=== PATIENT | male | born 1990 | race Caucasian/White ===

== ENCOUNTER 2018-11-08 15:51 | Inpatient (IN) | payer BC ==
[2018-11-08] MEDS ORDERED: Acetaminophen 325 MG Tab PO PRN (15:53)
[2018-11-08] MEDS ORDERED: Sodium Chloride 0.9% 10 ML Syringe FLUSH PRN (15:53)
[2018-11-08] MEDS ORDERED: Ketorolac 30 MG/ML SDV IVPUSH PRN (16:03)
[2018-11-08] MEDS ORDERED: Vancomycin 2 GM in Sodium Chloride 0.9% 500 ML IV ONE ×4 (17:00)
[2018-11-08] MEDS: Sodium Chloride 0.9% 1,000 ML IV SCH (17:30)
[2018-11-08] MEDS: Linezolid 600 MG in Premix Bag 1 BAG IV SCH (20:36)
[2018-11-08] MEDS ORDERED: Ibuprofen 600 MG Tab PO PRN (21:04)
[2018-11-08] MEDS ORDERED: Ibuprofen 400 MG Tab PO PRN (21:10)
[2018-11-09 08:10] LABS: CHLORIDE,CL 101 mmol/L (98-115); SODIUM,NA 139 mmol/L (136-145)
--- NOTE | 2018-11-09 09:05 | PN ---
11/08/2018 PATIENT NAME: MIR WAGNER HISTORY OF PRESENT ILLNESS: This is a 28-year-old gentleman who was admitted today because of left elbow olecranon bursitis. The patient has stated multiple allergies including penicillin, Rocephin, sulfa, Benadryl, and cetirizine. I did confer with Infectious Disease specialist from [facility] this evening. I was advised to start him on linezolid 600 mg IV q.12 hours. This will be done this evening. Blood cultures have also been drawn for him. /[id number]/MODL
[2018-11-09] MEDS: Famotidine 20 MG Tab PO SCH (09:48)
[2018-11-09] MEDS: Linezolid 600 MG in Premix Bag 1 BAG IV SCH ×2 (09:48→21:20)
--- NOTE | 2018-11-09 10:42 | PCM.PN ---
- General Info Date of Service: 11/09/18 Functional Status: Reports: Pain Controlled, Urinating. Denies: Ambulating, New Symptoms - Review of Systems General: Denies: Fever HEENT: Reports: No Symptoms Pulmonary: Reports: No Symptoms Cardiovascular: Reports: No Symptoms Gastrointestinal: Reports: No Symptoms Musculoskeletal: Reports: Arm Pain, Joint Swelling Skin: Reports: Other (Left elbow erythematous however slightly receding) Neurological: Denies: Confusion Psychiatric: Reports: No Symptoms - Patient Data Vitals - Most Recent: Last Vital Signs Temp 98.8 F 11/09/18 10:00 Pulse 89 11/09/18 06:40 Resp 18 11/09/18 06:40 BP 112/55 L 11/09/18 06:40 Pulse Ox 94 L 11/09/18 06:40 Weight - Most Recent: 194 lb I&O - Last 24 Hours: Intake & Output 11/08/18 11/09/18 11/09/18 22:59 06:59 14:59 Intake Total 1170 910 Output Total 300 Balance 870 910 Lab Results Last 24 Hours: Laboratory Results - last 24 hr 11/08/18 11/09/18 11/09/18 Range/Units 20:00 07:10 07:10 WBC 8.93 (5.00-10.00) 10^3/uL RBC 4.76 (4.50-6.00) 10^6/uL Hgb 14.7 (13.0-17.0) g/dL Hct 40.9 (40.0-52.0) % MCV 85.9 (82.0-92.0) fL MCH 30.9 (27.0-31.0) pg MCHC 35.9 (32.0-36.0) g/dL RDW 12.0 (11.5-14.5) % Plt Count 119 L (150-400) 10^3/uL MPV 9.2 (7.4-10.4) fL Immature Gran % (Auto) 0.1 (0.0-5.0) % Neut % (Auto) 74.2 H (50.0-70.0) % Lymph % (Auto) 9.9 L (20.0-40.0) % [place] % (Auto) 13.8 H (2.0-8.0) % Eos % (Auto) 1.9 (1.0-3.0) % Baso % (Auto) 0.1 (0.0-1.0) % Immature Gran # (Auto) 0.01 (0.00-0.50) 10^3/uL Neut # (Auto) 6.63 (2.50-7.00) 10^3/uL Lymph # (Auto) 0.88 L (1.00-4.00) 10^3/uL [place] # (Auto) 1.23 H (0.10-0.80) 10^3/uL Eos # (Auto) 0.17 (0.10-0.30) 10^3/uL Baso # (Auto) 0.01 (0.00-0.10) 10^3/uL Sodium 139 (136-145) mmol/L Potassium 3.6 (3.3-5.3) mmol/L Chloride 101 (98-115) mmol/L Carbon Dioxide 25.6 (21.0-32.0) mmol/L Anion Gap 16.0 H (5-15) mmol/L BUN 7 (6-25) mg/dL Creatinine 0.94 (0.51-1.17) mg/dL Est Cr Clr Drug Dosing 138.46 mL/min Estimated GFR (MDRD) > 60 mL/min Glucose 175 H (75 - 99) mg/dL Calcium 8.7 (8.7-10.3) mg/dL Total Bilirubin 1.6 H (0.2-1.0) mg/dL AST 7 L (15-37) U/L ALT 5 L (12-78) U/L Alkaline Phosphatase 47 (46-116) IU/L Total Protein 6.5 (6.4-8.2) g/dL Albumin 3.66 (3.00-4.80) g/dL Specimen Type Urincc Urine Color Yellow (YELLOW) Urine Appearance Clear (CLEAR) Urine pH 6.0 (5.0-9.0) Ur Specific [place] <= 1.005 (1.005-1.030) Urine Protein Negative (NEGATIVE) mg/dL Urine Glucose (UA) Negative (NEGATIVE) mg/dL Urine Ketones Negative (NEGATIVE) mg/dL Urine Occult Blood Negative (NEGATIVE) Urine Nitrite Negative (NEGATIVE) Urine Bilirubin Negative (NEGATIVE) Urine Urobilinogen 0.2 (0.2-1.0) E.U./dL Ur Leukocyte Esterase Negative (NEGATIVE) Urine RBC 0-5 (0-5) /HPF Urine WBC 0-5 (0-5) /HPF Ur Epithelial Cells Few /LPF Urine Bacteria Rare (NONE TO FEW) /HPF Med Orders - Current: Current Medications Acetaminophen (Tylenol) 650 mg PO QID PRN PRN Reason: Pain (Mild 1-3)/fever Last Admin: 11/08/18 20:11 Dose: 650 mg Famotidine (Pepcid) 20 mg PO DAILY [facility] Last Admin: 11/09/18 09:48 Dose: 20 mg Sodium Chloride (Normal Saline) 1,000 mls @ 70 mls/hr IV ASDIRECTED [facility] Last Admin: 11/08/18 17:30 Dose: 70 mls/hr Linezolid 600 mg/ Premix 300 mls @ 300 mls/hr IV Q12H [facility] Last Admin: 11/09/18 09:48 Dose: 300 mls/hr Ibuprofen (Motrin) 800 mg PO Q6H PRN PRN Reason: Fever Ketorolac Tromethamine (Toradol) 30 mg IVPUSH Q8H PRN PRN Reason: pain Stop: 11/13/18 16:03 Last Admin: 11/09/18 05:50 Dose: 30 mg Sodium Chloride (Saline Flush) 10 ml FLUSH Q8HR PRN PRN Reason: keep vein open Discontinued Medications Vancomycin HCl 2 gm/ Sodium (Chloride) 500 mls @ 200 mls/hr IV ONETIME ONE Stop: 11/08/18 19:29 Last Admin: 11/08/18 17:31 Dose: 200 mls/hr Vancomycin HCl 1.25 gm/ Sodium (Chloride) 250 mls @ 166.667 mls/hr IV Q8H [facility] Ibuprofen (Motrin) 800 mg PO Q6H PRN PRN Reason: Fever - Exam Quality Assessment: No: Supplemental Oxygen General: Alert, Oriented Neck: Supple Lungs: Clear to Auscultation, Normal Respiratory Effort Cardiovascular: Regular Rate, Regular Rhythm GI/Abdominal Exam: Soft, No Distention Extremities: No Pedal Edema Skin: Warm, Other Wound/Incisions: Drainage (Left elbow, mild erythremia, slightly receding from demarcated line drawn, more edema distal likely dependent, some serosanguineous drainage, [place] intact, slight warmth to joint), Erythema Improving Neurological: No New Focal Deficit Psy/Mental Status: Alert, Normal Affect, Normal Mood - Problem List Review Problem List Initiated/Reviewed/Updated: Yes - Plan Plan:: Brief summary, (please use H&P from [facility] dated November 08, 2018) Juan R is a 28-year-old patient was admitted by Dr. Dejon Winter from the [facility] due to cellulitis of his left elbow. He was reevaluated due to increasing swelling, redness and pain involving the left elbow. Initially he was evaluated by FAMILIA Gandhi at [facility] planing of redness to his left elbow when he was started on ciprofloxacin however his symptoms worsened therefore was evaluated again by [facility] subsequently referred to Dr Ashford whereby undergoing aspiration with Patricia drain. Cultures were taken sent to pathology, noted and placed on IV antibiotics. [facility] white count 13,000 , neutrophilia, ESR normal at 4. Primary admitting diagnosis, Left olecranon infection bursitis. Continue with current antibiotics, neutrophilia improving. Afebrile. Monitor cultures for definitive therapy, elevate extremity today. Monitor closely for worsening redness, fever. mild compression therapy.
[2018-11-09] MEDS: Sodium Chloride 0.9% 1,000 ML IV SCH (12:19)
[2018-11-10] MEDS: Sodium Chloride 0.9% 1,000 ML IV SCH ×2 (02:53→18:09)
[2018-11-10] MEDS: Famotidine 20 MG Tab PO SCH ×2 (10:19→10:25)
[2018-11-10] MEDS: Linezolid 600 MG in Premix Bag 1 BAG IV SCH ×2 (10:21→21:21)
--- NOTE | 2018-11-11 09:32 | PCM.PN ---
- General Info Date of Service: 11/10/18 Functional Status: Reports: New Symptoms (Slightly more erythema more distal with some tingling in his tips of his fingers). Denies: Pain Controlled - Review of Systems General: Denies: Fever, Weakness HEENT: Reports: No Symptoms Pulmonary: Reports: No Symptoms Cardiovascular: Reports: No Symptoms Gastrointestinal: Reports: No Symptoms Genitourinary: Reports: No Symptoms Skin: Reports: Other (Elbow redness forearm redness and increased warmth) Neurological: Reports: Tingling. Denies: Confusion, Weakness Psychiatric: Reports: Other (Boredom) - Patient Data Vitals - Most Recent: Last Vital Signs Temp 98.5 F 11/11/18 06:57 Pulse 63 11/11/18 06:57 Resp 16 11/11/18 06:57 BP 109/64 11/11/18 06:57 Pulse Ox 98 11/11/18 06:57 Weight - Most Recent: 194 lb I&O - Last 24 Hours: Intake & Output 11/10/18 11/11/18 11/11/18 22:59 06:59 14:59 Intake Total 943 741 Balance 943 741 Rogelio Results Last 24 Hours: Microbiology 11/08/18 19:45 Aerobic Blood Culture - Preliminary Blood - Venous - Lab Draw NO GROWTH AFTER 2 DAYS Anaerobic Blood Culture - Preliminary NO GROWTH AFTER 2 DAYS 11/08/18 19:35 Aerobic Blood Culture - Preliminary Blood - Venous NO GROWTH AFTER 2 DAYS Anaerobic Blood Culture - Preliminary NO GROWTH AFTER 2 DAYS Med Orders - Current: Current Medications Acetaminophen (Tylenol) 650 mg PO QID PRN PRN Reason: Pain (Mild 1-3)/fever Last Admin: 11/08/18 20:11 Dose: 650 mg Famotidine (Pepcid) 20 mg PO DAILY [facility] Last Admin: 11/10/18 10:25 Dose: Not Given Sodium Chloride (Normal Saline) 1,000 mls @ 70 mls/hr IV ASDIRECTED [facility] Last Admin: 11/10/18 18:09 Dose: 70 mls/hr Linezolid 600 mg/ Premix 300 mls @ 300 mls/hr IV Q12H [facility] Last Admin: 11/10/18 21:21 Dose: 300 mls/hr Ibuprofen (Motrin) 800 mg PO Q6H PRN PRN Reason: Fever Ketorolac Tromethamine (Toradol) 30 mg IVPUSH Q8H PRN PRN Reason: pain Stop: 11/13/18 16:03 Last Admin: 11/09/18 05:50 Dose: 30 mg Sodium Chloride (Saline Flush) 10 ml FLUSH Q8HR PRN PRN Reason: keep vein open Discontinued Medications Vancomycin HCl 2 gm/ Sodium (Chloride) 500 mls @ 200 mls/hr IV ONETIME ONE Stop: 11/08/18 19:29 Last Admin: 11/08/18 17:31 Dose: 200 mls/hr Vancomycin HCl 1.25 gm/ Sodium (Chloride) 250 mls @ 166.667 mls/hr IV Q8H [facility] Ibuprofen (Motrin) 800 mg PO Q6H PRN PRN Reason: Fever - Exam Quality Assessment: No: Supplemental Oxygen General: Alert, Oriented Neck: Supple Lungs: Clear to Auscultation, Normal Respiratory Effort Cardiovascular: Regular Rate, Regular Rhythm GI/Abdominal Exam: Soft Extremities: No Pedal Edema Peripheral Pulses: 2+: Radial (L), Radial (R) Skin: Other (Increase in warmth elbow forearm,) Wound/Incisions: Drainage (Slight brownish drainage, approximately quarter size) , Erythema Psy/Mental Status: Alert, Normal Affect, Normal Mood - Problem List Review Problem List Initiated/Reviewed/Updated: Yes - My Orders Last 24 Hours: My Active Orders 11/10/18 19:02 Admission Status [Patient Status] [ADT] Routine - Plan Plan:: Brief summary, (please use H&P from [facility] dated November 08, 2018) Juan R is a 28-year-old patient was admitted by Dr. Dejon Winter from the [facility] due to cellulitis of his left elbow. He was reevaluated due to increasing swelling, redness and pain involving the left elbow. Initially he was evaluated by FAMILIA Gandhi at [facility] planing of redness to his left elbow when he was started on ciprofloxacin however his symptoms worsened therefore was evaluated again by [facility] subsequently referred to Dr Ashford whereby undergoing aspiration with [place] drain. Cultures were taken sent to pathology, noted and placed on IV antibiotics. [facility] white count 13,000 , neutrophilia, ESR normal at 4. Primary admitting diagnosis, Left olecranon infection. Continue with current antibiotics, neutrophilia improving. Afebrile. Monitor cultures for definitive therapy, elevate extremity , long discussion with patient and family regarding course of antibiotics, seems to be improving clinically however will consult with ID regarding patient condition.
[2018-11-11] MEDS: Sodium Chloride 0.9% 1,000 ML IV SCH (09:34)
[2018-11-11] MEDS: Linezolid 600 MG in Premix Bag 1 BAG IV SCH ×2 (09:34→20:19)
[2018-11-11] MEDS: Famotidine 20 MG Tab PO SCH (09:35)
--- NOTE | 2018-11-11 09:50 | PCM.PN ---
- General Info Date of Service: 11/11/18 Functional Status: Reports: Pain Controlled - Review of Systems General: Denies: Fever Pulmonary: Reports: No Symptoms Cardiovascular: Reports: No Symptoms Gastrointestinal: Reports: No Symptoms Skin: Reports: Other (Receiving erythremia, minimal drainage) - Patient Data Vitals - Most Recent: Last Vital Signs Temp 98.5 F 11/11/18 06:57 Pulse 63 11/11/18 06:57 Resp 16 11/11/18 06:57 BP 109/64 11/11/18 06:57 Pulse Ox 98 11/11/18 06:57 Weight - Most Recent: 194 lb I&O - Last 24 Hours: Intake & Output 11/10/18 11/11/18 11/11/18 22:59 06:59 14:59 Intake Total 943 741 Balance 943 741 Rogelio Results Last 24 Hours: Microbiology 11/08/18 19:45 Aerobic Blood Culture - Preliminary Blood - Venous - Lab Draw NO GROWTH AFTER 2 DAYS Anaerobic Blood Culture - Preliminary NO GROWTH AFTER 2 DAYS 11/08/18 19:35 Aerobic Blood Culture - Preliminary Blood - Venous NO GROWTH AFTER 2 DAYS Anaerobic Blood Culture - Preliminary NO GROWTH AFTER 2 DAYS Med Orders - Current: Current Medications Acetaminophen (Tylenol) 650 mg PO QID PRN PRN Reason: Pain (Mild 1-3)/fever Last Admin: 11/08/18 20:11 Dose: 650 mg Famotidine (Pepcid) 20 mg PO DAILY [facility] Last Admin: 11/11/18 09:35 Dose: Not Given Sodium Chloride (Normal Saline) 1,000 mls @ 70 mls/hr IV ASDIRECTED [facility] Last Admin: 11/11/18 09:34 Dose: 70 mls/hr Linezolid 600 mg/ Premix 300 mls @ 300 mls/hr IV Q12H [facility] Last Admin: 11/11/18 09:34 Dose: 300 mls/hr Ibuprofen (Motrin) 800 mg PO Q6H PRN PRN Reason: Fever Ketorolac Tromethamine (Toradol) 30 mg IVPUSH Q8H PRN PRN Reason: pain Stop: 11/13/18 16:03 Last Admin: 11/09/18 05:50 Dose: 30 mg Sodium Chloride (Saline Flush) 10 ml FLUSH Q8HR PRN PRN Reason: keep vein open Last Admin: 11/11/18 09:48 Dose: 10 ml Discontinued Medications Vancomycin HCl 2 gm/ Sodium (Chloride) 500 mls @ 200 mls/hr IV ONETIME ONE Stop: 11/08/18 19:29 Last Admin: 11/08/18 17:31 Dose: 200 mls/hr Vancomycin HCl 1.25 gm/ Sodium (Chloride) 250 mls @ 166.667 mls/hr IV Q8H [facility] Ibuprofen (Motrin) 800 mg PO Q6H PRN PRN Reason: Fever - Exam General: Alert, Oriented Neck: Supple Lungs: Clear to Auscultation, Normal Respiratory Effort Cardiovascular: Regular Rate, Regular Rhythm Extremities: Joint Swelling, Increased Warmth (Minimal drainage, receding erythremia), Redness - Problem List Review Problem List Initiated/Reviewed/Updated: Yes - My Orders Last 24 Hours: My Active Orders 11/10/18 19:02 Admission Status [Patient Status] [ADT] Routine - Plan Plan:: Brief summary, (please use H&P from [facility] dated November 08, 2018) Juan R is a 28-year-old patient was admitted by Dr. Dejon Winter from the [facility] due to cellulitis of his left elbow. He was reevaluated due to increasing swelling, redness and pain involving the left elbow. Initially he was evaluated by FAMILIA Gandhi at [facility] planing of redness to his left elbow when he was started on ciprofloxacin however his symptoms worsened therefore was evaluated again by [facility] subsequently referred to Dr Ashford whereby undergoing aspiration with [place] drain. Cultures were taken sent to pathology, noted and placed on IV antibiotics. [facility] white count 13,000 , neutrophilia, ESR normal at 4. Update today, receding erythremia, minimal drainage, no fever, less pain, however still quite warm to elbow Primary admitting diagnosis, Left olecranon infection. Continue with current antibiotics, neutrophilia improving. Afebrile. Monitor cultures for definitive therapy, elevate extremity , long discussion with patient and family regarding course of antibiotics, seems to be improving clinically however will consult with ID regarding patient condition. Consultation with infectious disease [facility], will need ~2 weeks of oral Linezolid starting this p.m. Remove [place] drain, keep left extremity elevated above heart. Consulted with pharmacy regarding medication. Anticipate discharge November 12 close follow-up [facility]. Clinical course was explained to patient and spouse.
--- NOTE | 2018-11-11 10:58 | PN ---
11/10/2018 PATIENT NAME: MIR WAGNER Service date for this one was November 10, 2018. /[id number]/MODL This document was made in error. Please delete this as i completed this progress note in [facility]
[2018-11-11] MEDS: Linezolid 600 MG Tab PO SCH (19:32)
[2018-11-11] MEDS ORDERED: Linezolid 600 MG Tab PO SCH (20:00)
[2018-11-12] MEDS: Sodium Chloride 0.9% 1,000 ML IV SCH (02:04)
[2018-11-12 06:53] VITALS: BP 107/60
[2018-11-12] MEDS: Linezolid 600 MG Tab PO SCH (09:20)
[2018-11-12] MEDS: Famotidine 20 MG Tab PO SCH (09:20)
[2018-11-12] MEDS: Linezolid 600 MG in Premix Bag 1 BAG IV SCH (09:20)
--- NOTE | 2018-11-12 11:39 | PCM.DCSUM1 ---
Discharge Summary - Hospital Course Free Text/Narrative:: Juan R todd a 28-year-old patient was admitted by Dr. Dejon Winter from the [facility] due to cellulitis of his left elbow. He was reevaluated due to increasing swelling, redness and pain involving the left elbow. Initially he was evaluated by myself at [facility] complaining of redness to his left elbow. As he had rocephin allergy, he was started on ciprofloxacin and returned the following day. In follow up visit his symptoms worsened, he was referred to Dr Ashford, undergoing aspiration with [place] drain. Cultures were taken sent to pathology. He was initially admitted to [facility] 11/08/18 for observation and subsequently admitted and placed on IV antibiotics. [facility] white count 13,000, neutrophilia, ESR normal at 4. Left olecranon infection: Treated with linezolid 600 mg IV bid. Neutrophilia improved. He remained Afebrile. [place] cultures had no growth. He has been instructed to elevate extremity. ID from [facility] was consulted and recommended ~2 weeks of oral Linezolid starting this p.m. [place] drain was removed and incision is closed without any further drainage. Erythema is resolved. Edema continues with left forearm 1 cm larger than left and upper arm 2 cm > left. He has been instructed to keep left extremity elevated above heart. He is to follow up closely with [facility]. To be seen in the [facility] Wednesday or Wednesday. Diagnosis: Stroke: No - Discharge Data Discharge Date: 11/12/18 Discharge Disposition: Home, Self-Care 01 Condition: Good - Discharge Diagnosis/Problem(s) (1) Cellulitis SNOMED Code(s): 625642804 ICD Code: L03.90 - CELLULITIS, UNSPECIFIED Status: Acute Current Visit: Yes Qualifiers: Site of cellulitis: extremity Site of cellulitis of extremity: upper extremity Laterality: left Qualified Code(s): L03.114 - Cellulitis of left upper limb (2) Olecranon bursitis SNOMED Code(s): 931511467 ICD Code: M70.20 - OLECRANON BURSITIS, UNSPECIFIED ELBOW Status: Acute Current Visit: Yes Qualifiers: Laterality: left Qualified Code(s): M70.22 - Olecranon bursitis, left elbow - Patient Instructions Diet: Usual Diet as Tolerated Activity: As Tolerated Showering/Bathing: May Shower Wound/Incision Care: Keep Operative Site/Wound Site Clean and Dry, Change Dressing Daily Notify Provider of: Fever, Increased Pain, Swelling and Redness, Drainage - Discharge Plan *PRESCRIPTION DRUG MONITORING PROGRAM REVIEWED*: Not Applicable *COPY OF PRESCRIPTION DRUG MONITORING REPORT IN PATIENT BECKI: Not Applicable Prescriptions/Med Rec: Linezolid [Zyvox] 600 mg PO Q12H #28 tablet Home Medications: Home Meds Fexofenadine [Sandra] 180 mg PO DAILY 06/25/15 [History] Ibuprofen 200 - 800 mg PO Q6H PRN 06/11/18 [History] Acetaminophen [Tylenol] 650 mg PO QID PRN tablet 11/12/18 [Rx] Famotidine [Pepcid] 20 mg PO DAILY tablet 11/12/18 [Rx] Linezolid [Zyvox] 600 mg PO Q12H #28 tablet 11/12/18 [Rx] Oxygen Therapy Mode: Room Air Referrals: Magnolia Alcaraz NP [Nurse Practitioner] - - Discharge Summary/Plan Comment DC Time >30 min.: Yes - General Info Date of Service: 11/12/18 Admission Dx/Problem (Free Text: left Olecranon infection Functional Status: Reports: Pain Controlled - Review of Systems General: Reports: No Symptoms HEENT: Reports: No Symptoms Pulmonary: Reports: No Symptoms Cardiovascular: Reports: No Symptoms Gastrointestinal: Reports: No Symptoms Genitourinary: Reports: No Symptoms Musculoskeletal: Reports: Other (denies pain to left elbow. erythema resolved, swelling nearly resolved) Skin: Reports: Other (s/p patricia drain removal. site of patricia drain clean without drainage) Neurological: Reports: No Symptoms Psychiatric: Reports: No Symptoms - Patient Data Vitals - Most Recent: Last Vital Signs Temp 98.3 F 11/12/18 06:52 Pulse 55 L 11/12/18 06:52 Resp 16 11/12/18 06:52 BP 107/60 11/12/18 06:52 Pulse Ox 96 11/12/18 06:52 Weight - Most Recent: 194 lb I&O - Last 24 hours: Intake & Output 11/11/18 11/12/18 11/12/18 22:59 06:59 14:59 Intake Total 926 779 Balance 926 779 Lab Results - Last 24 hrs: Laboratory Results - last 24 hr 11/12/18 Range/Units 07:45 WBC 6.07 (5.00-10.00) 10^3/uL RBC 5.17 (4.50-6.00) 10^6/uL Hgb 15.6 (13.0-17.0) g/dL Hct 44.4 (40.0-52.0) % MCV 85.9 (82.0-92.0) fL MCH 30.2 (27.0-31.0) pg MCHC 35.1 (32.0-36.0) g/dL RDW 11.9 (11.5-14.5) % Plt Count 172 (150-400) 10^3/uL MPV 8.7 (7.4-10.4) fL Immature Gran % (Auto) 0.2 (0.0-5.0) % Neut % (Auto) 65.8 (50.0-70.0) % Lymph % (Auto) 15.8 L (20.0-40.0) % [place] % (Auto) 10.2 H (2.0-8.0) % Eos % (Auto) 7.7 H (1.0-3.0) % Baso % (Auto) 0.3 (0.0-1.0) % Immature Gran # (Auto) 0.01 (0.00-0.50) 10^3/uL Neut # (Auto) 3.99 (2.50-7.00) 10^3/uL Lymph # (Auto) 0.96 L (1.00-4.00) 10^3/uL [place] # (Auto) 0.62 (0.10-0.80) 10^3/uL Eos # (Auto) 0.47 H (0.10-0.30) 10^3/uL Baso # (Auto) 0.02 (0.00-0.10) 10^3/uL [place] Results - Last 24 hrs: Microbiology 11/08/18 19:45 Aerobic Blood Culture - Preliminary Blood - Venous - Lab Draw NO GROWTH AFTER 3 DAYS Anaerobic Blood Culture - Preliminary NO GROWTH AFTER 3 DAYS 11/08/18 19:35 Aerobic Blood Culture - Preliminary Blood - Venous NO GROWTH AFTER 3 DAYS Anaerobic Blood Culture - Preliminary NO GROWTH AFTER 3 DAYS Med Orders - Current: Current Medications Acetaminophen (Tylenol) 650 mg PO QID PRN PRN Reason: Pain (Mild 1-3)/fever Last Admin: 11/08/18 20:11 Dose: 650 mg Famotidine (Pepcid) 20 mg PO DAILY [facility] Last Admin: 11/12/18 09:20 Dose: Not Given Sodium Chloride (Normal Saline) 1,000 mls @ 70 mls/hr IV ASDIRECTED [facility] Last Admin: 11/12/18 02:04 Dose: 70 mls/hr Linezolid 600 mg/ Premix 300 mls @ 300 mls/hr IV Q12H [facility] Last Admin: 11/12/18 09:20 Dose: 300 mls/hr Ibuprofen (Motrin) 800 mg PO Q6H PRN PRN Reason: Fever Ketorolac Tromethamine (Toradol) 30 mg IVPUSH Q8H PRN PRN Reason: pain Stop: 11/13/18 16:03 Last Admin: 11/09/18 05:50 Dose: 30 mg Linezolid (Zyvox) 600 mg PO Q12H [facility] Stop: 11/22/18 20:01 Last Admin: 11/12/18 09:20 Dose: Not Given Sodium Chloride (Saline Flush) 10 ml FLUSH Q8HR PRN PRN Reason: keep vein open Last Admin: 11/11/18 09:48 Dose: 10 ml Discontinued Medications Vancomycin HCl 2 gm/ Sodium (Chloride) 500 mls @ 200 mls/hr IV ONETIME ONE Stop: 11/08/18 19:29 Last Admin: 11/08/18 17:31 Dose: 200 mls/hr Vancomycin HCl 1.25 gm/ Sodium (Chloride) 250 mls @ 166.667 mls/hr IV Q8H [facility] Ibuprofen (Motrin) 800 mg PO Q6H PRN PRN Reason: Fever Linezolid (Zyvox) 600 mg PO Q12H [facility] Stop: 11/22/18 23:59 - Exam General: Reports: Alert, Oriented Lungs: Reports: Clear to Auscultation, Normal Respiratory Effort Cardiovascular: Reports: Regular Rate, Regular Rhythm Extremities: Other (left arm with no further erythema. Swelling of left forearm 1 cm > right, left upper arm 2 cm> right) Wound/Incisions: Reports: Healing Well Psy/Mental Status: Reports: Alert, Normal Affect
== END 2018-11-12 13:10 | disposition home or self-care (01) | DRG 351 ==
LOC: KA.MS 15:51 → OBSVTOIN 11-10 19:02
PROVIDERS: ADMIT Family Medicine; ATTEND Family Medicine
DX: M70.22 Olecranon bursitis, left elbow (principal); L03.114 Cellulitis of left upper limb; F90.9 Attention-deficit hyperactivity disorder, unspecified type; M47.817 Spondylosis without myelopathy or radiculopathy, lumbosacral region; F17.220 Nicotine dependence, chewing tobacco, uncomplicated; Z88.1 Allergy status to other antibiotic agents; Z79.899 Other long term (current) drug therapy; Z88.0 Allergy status to penicillin; Z88.2 Allergy status to sulfonamides; Z88.8 Allergy status to other drugs, medicaments and biological substances; Z91.048 Other nonmedicinal substance allergy status
CPT/HCPCS: 36415; 80053; 81001; 85025; 87040; 96361; 96365; 96366; 96375; A9270-GY; G0378; G0379; J1885; J2020; J3370; J7030; J7040

== ENCOUNTER 2020-07-24 11:59 | Inpatient (IN) | payer BC ==
[2020-07-24] MEDS ORDERED: Acetaminophen 325 MG Tab PO PRN (14:26)
[2020-07-24] MEDS ORDERED: Clindamycin Phosphate 900 MG/6 ML SDV IV SCH (15:00)
[2020-07-24] MEDS: Dextrose 5%-0.45% NaCl 1,000 ML IV SCH (15:04)
[2020-07-25] MEDS: Dextrose 5%-0.45% NaCl 1,000 ML IV SCH ×2 (02:46→14:29)
--- NOTE | 2020-07-25 09:56 | PCM.PN ---
- General Info Date of Service: 07/25/20 Functional Status: Reports: Pain Controlled, Tolerating Diet. Denies: New Symptoms - Review of Systems General: Reports: No Symptoms HEENT: Denies: Sinus Congestion, Sore Throat Pulmonary: Reports: No Symptoms Cardiovascular: Reports: No Symptoms Gastrointestinal: Reports: No Symptoms Genitourinary: Reports: No Symptoms Skin: Reports: Rash Neurological: Reports: No Symptoms Psychiatric: Reports: No Symptoms - Patient Data Vitals - Most Recent: Last Vital Signs Temp 98 F 07/25/20 06:26 Pulse 78 07/25/20 08:00 Resp 16 07/25/20 06:26 BP 120/64 07/25/20 08:00 Pulse Ox 96 07/25/20 06:26 Weight - Most Recent: 188 lb 9.6 oz I&O - Last 24 Hours: Intake & Output 07/24/20 07/25/20 07/25/20 22:59 06:59 14:59 Intake Total 1320 706 Balance 1320 706 Lab Results Last 24 Hours: Laboratory Results - last 24 hr 07/24/20 07/25/20 Range/Units 14:33 07:12 WBC 4.21 L (5.00-10.00) 10^3/uL RBC 5.16 (4.50-6.00) 10^6/uL Hgb 15.2 (13.0-17.0) g/dL Hct 44.2 (40.0-52.0) % MCV 85.7 (82.0-92.0) fL MCH 29.5 (27.0-31.0) pg MCHC 34.4 (32.0-36.0) g/dL RDW 12.2 (11.5-14.5) % Plt Count 148 L (150-400) 10^3/uL MPV 8.6 (7.4-10.4) fL Immature Gran % (Auto) 0.0 (0.0-5.0) % Neut % (Auto) 45.8 L (50.0-70.0) % Lymph % (Auto) 27.6 (20.0-40.0) % [place] % (Auto) 15.4 H (2.0-8.0) % Eos % (Auto) 10.7 H (1.0-3.0) % Baso % (Auto) 0.5 (0.0-1.0) % Neut # (Auto) 1.93 L (2.50-7.00) 10^3/uL Lymph # (Auto) 1.16 (1.00-4.00) 10^3/uL [place] # (Auto) 0.65 (0.10-0.80) 10^3/uL Eos # (Auto) 0.45 H (0.10-0.30) 10^3/uL Baso # (Auto) 0.02 (0.00-0.10) 10^3/uL Immature Gran # (Auto) 0.00 (0.00-0.50) 10^3/uL SARS CoV-2 RNA Rapid MATA Negative (NEGATIVE) Med Orders - Current: Current Medications Acetaminophen (Tylenol) 650 mg PO Q4H PRN PRN Reason: Pain Last Admin: 07/24/20 21:07 Dose: 650 mg Documented by: Dextrose/Sodium Chloride (Dextrose 5%-1/2 Ns) 1,000 mls @ 100 mls/hr IV ASDIRECTED COUNTS INCLUDE 234 BEDS AT THE [facility] Last Admin: 07/25/20 02:46 Dose: 100 mls/hr Documented by: Clindamycin Phosphate 600 mg/ (Sodium Chloride) 54 mls @ 54 mls/hr IV Q6H COUNTS INCLUDE 234 BEDS AT THE [facility] Last Admin: 07/25/20 08:47 Dose: 54 mls/hr Documented by: - Exam Quality Assessment: DVT Prophylaxis. No: Supplemental Oxygen General: Alert, Oriented HEENT: Other (Right upper tooth, erythematous, drainage blackened) Neck: Supple Lungs: Clear to Auscultation, Normal Respiratory Effort Cardiovascular: Regular Rate, Regular Rhythm GI/Abdominal Exam: Normal Bowel Sounds, Soft Extremities: No Pedal Edema Peripheral Pulses: 2+: Radial (L), Radial (R) Skin: Other (Sided facial edema slight, slight erythematous) Neurological: No New Focal Deficit Psy/Mental Status: Alert, Normal Affect, Normal Mood Sepsis Event Note - Evaluation Sepsis Screening Result: No Definite Risk - Focused Exam Vital Signs: Vital Signs Temp Pulse Resp BP Pulse Ox 07/25/20 08:00 78 120/64 07/25/20 06:26 98 F 64 16 89/48 L 96 07/24/20 22:55 98.4 F 74 20 97/45 L 95 - Problem List Review Problem List Initiated/Reviewed/Updated: Yes - Plan Plan:: HPI summary 30-year-old gentleman was admitted inpatient status for IV antibiotics due to periodontal disease and cellulitis. [facility], right-sided facial edema edema, low-grade fever, involving the right side of his face and his upper jaw. Patient admits leaving clinic stopping at gas station in route to the hospital he had significant copious purulent, green-purple drainage from his right jaw after gentle facial pressure. Diagnostics CT, Minor mucosal thickening right maxillary sinus with extensive dental disease WBC 8.1, neutrophils 69%, electrolytes normal Hospital course 07/25/2020; no overnight concerns other than low blood pressure however asymptomatic, white count normal, no fevers, no sweats, no chest pain or any signs of systemic infection. Primary hospital problems --Cellulitis --Sinusitis --Periodontal disease --Tobacco (chew) --Multiple antibiotic allergies, likely not type I Disposition/overall plan --Patient meets inpatient qualification due to need for IV antibiotics and close monitoring of cellulitis --Continue with IV antibiotics clindamycin, monitor for diarrhea --Bacterial static mouthwash --Monitor for chest pains, flash fevers --DVT prophylaxis, ambulation, SCDs at night
[2020-07-25] MEDS: Chlorhexidine Gluconate 0.12% Oral Rinse 473 ML Bottle MUCMEM SCH ×2 (12:41→20:53)
[2020-07-26] MEDS: Dextrose 5%-0.45% NaCl 1,000 ML IV SCH (04:04)
[2020-07-26] MEDS: Chlorhexidine Gluconate 0.12% Oral Rinse 473 ML Bottle MUCMEM SCH (08:45)
--- NOTE | 2020-07-26 10:21 | PCM.DCSUM1 ---
Discharge Summary - Hospital Course Diagnosis: Stroke: No - Discharge Data Discharge Date: 07/26/20 Discharge Disposition: Home, Self-Care 01 Condition: Good - Referral to Home Health Primary Care Physician: Magnolia Alcaraz NP - Patient Instructions Diet: Drink 8-10+ Glasses/Day Activity: As Tolerated Driving: May Drive Today Showering/Bathing: December Shower Notify Provider of: Fever, Increased Pain, Nausea and/or Vomiting Other/Special Instructions: report any shortness of breath or chest pain - Discharge Plan *PRESCRIPTION DRUG MONITORING PROGRAM REVIEWED*: Not Applicable *COPY OF PRESCRIPTION DRUG MONITORING REPORT IN PATIENT BECKI: Not Applicable Prescriptions/Med Rec: clindamycin HCL [Cleocin] 450 mg PO Q6H #24 cap Chlorhexidine Gluconate 0.12% [Peridex 0.12% Rinse] 15 ml MUCMEM BID #1 bottle Home Medications: Home Meds Fexofenadine [Sandra] 180 mg PO DAILY 06/25/15 [History] Ibuprofen 200 - 800 mg PO Q6H PRN 06/11/18 [History] Acetaminophen [Tylenol] 650 mg PO QID PRN tablet 11/12/18 [Rx] Fluticasone Propionate [Flonase] 50 mcg NS 07/24/20 [History] Chlorhexidine Gluconate 0.12% [Peridex 0.12% Rinse] 15 ml MUCMEM BID #1 bottle 07/26/20 [Rx] clindamycin HCL [Cleocin] 450 mg PO Q6H #24 cap 07/26/20 [Rx] - Discharge Summary/Plan Comment DC Time >30 min.: No Discharge Summary/Plan Comment: Final diagnosis --Cellulitis, improving --Sinusitis --Periodontal disease --Tobacco (chew) --Multiple antibiotic allergies, likely not type I HPI summary 30-year-old gentleman was admitted inpatient status for IV antibiotics due to periodontal disease and cellulitis. Patient had seen Dr. FU general surgeon yesterday [facility] complaining of pain, right-sided facial edema edema, low-grade fever, involving the right side of his face and his upper jaw. Patient admits leaving clinic stopping at gas station in route to the hospital he had significant copious purulent, green-purple drainage from his right jaw after gentle facial pressure. Diagnostics CT, Minor mucosal thickening right maxillary sinus with extensive dental disease WBC 8.1, neutrophils 69%, electrolytes normal Hospital course 07/25/2020; no overnight concerns other than low blood pressure however asymptomatic, white count normal, no fevers, no sweats, no chest pain or any signs of systemic infection. 07/26/2020; no overnight concerns or calls, no fever or chest pain or shortness of breath, cellulitis to face no longer visible, swelling much improved, euvolemic, blood pressure much improved with IV fluids. No diarrhea with clindamycin Medication changes/adjustments upon discharge clindamycin, 150 mg p.o. every 6 hours #24 Bacterial static mouthwash Referral Patient will see Dentist next week, appt made for wednesday. - General Info Functional Status: Reports: Pain Controlled - Review of Systems General: Reports: No Symptoms HEENT: Reports: Other (Provement in swelling on face and upper gum, no drainage) Pulmonary: Reports: No Symptoms Cardiovascular: Reports: No Symptoms Gastrointestinal: Reports: No Symptoms Skin: Denies: Rash - Patient Data Vitals - Most Recent: Last Vital Signs Temp 98.1 F 07/26/20 06:14 Pulse 64 07/26/20 06:14 Resp 16 07/26/20 06:14 BP 110/61 07/26/20 06:14 Pulse Ox 96 07/26/20 06:14 Weight - Most Recent: 188 lb 9.6 oz I&O - Last 24 hours: Intake & Output 07/25/20 07/26/20 07/26/20 22:59 06:59 14:59 Intake Total 1254 1003 Balance 1254 1003 Med Orders - Current: Current Medications Acetaminophen (Tylenol) 650 mg PO Q4H PRN PRN Reason: Pain Last Admin: 07/24/20 21:07 Dose: 650 mg Documented by: Chlorhexidine Gluconate (Peridex 0.12% Rinse) 15 ml MUCMEM BID [facility] Last Admin: 07/26/20 08:45 Dose: 15 ml Documented by: Dextrose/Sodium Chloride (Dextrose 5%-1/2 Ns) 1,000 mls @ 100 mls/hr IV ASDIRECTED [facility] Last Admin: 07/26/20 04:04 Dose: 100 mls/hr Documented by: Clindamycin Phosphate 600 mg/ (Sodium Chloride) 54 mls @ 54 mls/hr IV Q6H [facility] Last Admin: 07/26/20 08:43 Dose: 54 mls/hr Documented by: - Exam General: Reports: Alert, Oriented Lungs: Reports: Clear to Auscultation, Normal Respiratory Effort Cardiovascular: Reports: Regular Rate, Regular Rhythm Skin: Reports: Warm, Dry, Intact, Other (No further evidence of swelling or redness to face)
[2020-07-26] MEDS ORDERED: Sodium Chloride 0.9% 10 ML Syringe FLUSH PRN (13:47)
[2020-07-26 15:54] VITALS: BP 104/60; PULSE 67
== END 2020-07-26 17:00 | disposition home or self-care (01) | DRG 383 ==
LOC: KA.CT 11:59 → KA.MS 14:23
PROVIDERS: ADMIT Family Medicine; ATTEND Family Medicine
DX: L03.211 Cellulitis of face (principal); K05.6 Periodontal disease, unspecified; T36.95XA Adverse effect of unspecified systemic antibiotic, initial encounter; F17.220 Nicotine dependence, chewing tobacco, uncomplicated; J01.00 Acute maxillary sinusitis, unspecified; K05.00 Acute gingivitis, plaque induced; Z79.899 Other long term (current) drug therapy; Z88.2 Allergy status to sulfonamides; Z88.0 Allergy status to penicillin
CPT/HCPCS: 36415; 70486; 85025; A9270-GY; J3490; J7042; U0002

== ENCOUNTER 2021-05-24 20:34 | Emergency (ER) | payer BC ==
[2021-05-24] MEDS ORDERED: Sodium Chloride 0.9% 10 ML Syringe FLUSH PRN (20:43)
[2021-05-24 21:07] VITALS: BP 127/72; PULSE 61
[2021-05-24 21:15] LABS: ANION GAP 14.4 mmol/L (5-15); CHLORIDE,CL 105 mmol/L (98-107); SODIUM,NA 144 mmol/L (136-145)
--- NOTE | 2021-05-24 21:34 | EDM.PDOC ---
ED HPI GENERAL MEDICAL PROBLEM - General Chief Complaint: General Stated Complaint: throat swelling, hard to swallow Time Seen by Provider: 05/24/21 21:07 Source of Information: Reports: Patient, Family (mother in law) History Limitations: Reports: No Limitations - History of Present Illness INITIAL COMMENTS - FREE TEXT/NARRATIVE: Patient presents with severe throat pain with swallowing. It started two days ago with a tickle in his throat and progressed steadily to now. No fever or cough. He has never had this before but has had unexplainable soft tissue infections twice in the past. One involved his arm which became extremely swollen. Denies immune compromise or injectable drug use. Right Face/Jaw Pain Score (Numeric/FACES): 9 - Related Data Allergies Allergy/AdvReac Type Severity Reaction Status Date / Time Bleach (Sodium Hypochlorite) Allergy Rash Verified 05/24/21 20:36 ceftriaxone sodium Allergy Rash Verified 05/24/21 20:36 [From Rocephin] cetirizine HCl [From Zyrtec] Allergy Headache Verified 05/24/21 20:36 diphenhydramine HCl Allergy Blurred Verified 05/24/21 20:36 [From Benadryl] Vision Penicillins Allergy Rash Verified 05/24/21 20:36 Sulfa (Sulfonamide Allergy Rash Verified 05/24/21 20:36 Antibiotics) vancomycin Allergy Fever Verified 05/24/21 20:36 Home Meds: Home Meds Fexofenadine [Sandra] 180 mg PO DAILY 06/25/15 [History] Ibuprofen 200 - 800 mg PO Q6H PRN 06/11/18 [History] Acetaminophen [Tylenol] 650 mg PO QID PRN tablet 11/12/18 [Rx] Past Medical History HEENT History: Reports: Otitis Media Cardiovascular History: Reports: Angina, Other (See Below) Other Cardiovascular History: Hx of either murmur or arrhythmia. Had extensive testing done which came back good. Respiratory History: Reports: Asthma Gastrointestinal History: Reports: Jaundice, Other (See Below) Other Gastrointestinal History: Upper GI balooning. Genitourinary History: Reports: None Musculoskeletal History: Reports: Amputation, Back Pain, Chronic, Fracture Neurological History: Reports: None Psychiatric History: Reports: ADHD Endocrine/Metabolic History: Reports: None Hematologic History: Reports: None Immunologic History: Reports: None Oncologic (Cancer) History: Reports: None Dermatologic History: Reports: None - Infectious Disease History Infectious Disease History: Reports: Chicken Pox - Past Surgical History HEENT Surgical History: Reports: None, Other (See Below) Other HEENT Surgeries/Procedures: July 2020 had a bunch of teeth removed due to infection. Cardiovascular Surgical History: Reports: None Respiratory Surgical History: Reports: None GI Surgical History: Reports: None Male Surgical History: Reports: None Endocrine Surgical History: Reports: None Neurological Surgical History: Reports: None Other Neurological Surgeries/Procedures: Bone marrow removal Musculoskeletal Surgical History: Reports: Amputation, Other (See Below) Other Musculoskeletal Surgeries/Procedures:: Right great toe amputation Oncologic Surgical History: Reports: None Social & Family History - Family History Cardiac: Reports: [place] - Tobacco Use Tobacco Use Status *Q: Never Tobacco User Second Hand Smoke Exposure: No - Caffeine Use Caffeine Use: Reports: Coffee, Soda - Recreational Drug Use Recreational Drug Use: No - Living Situation & Occupation Living situation: Reports: with Significant Other ED ROS GENERAL - Review of Systems Review Of Systems: See Below Constitutional: Denies: Fever, Chills, Malaise, Weakness HEENT: Reports: Throat Pain. Denies: Ear Pain, Vision Change Respiratory: Denies: Shortness of Breath, Cough Cardiovascular: Denies: Chest Pain, Lightheadedness, Syncope GI/Abdominal: Denies: Abdominal Pain, Diarrhea, Vomiting Musculoskeletal: Reports: Neck Pain. Denies: Shoulder Pain, Arm Pain, Back Pain, Hand Pain Skin: Denies: Cyanosis, Jaundice, Mottled, Pallor, Diaphoresis Neurological: Denies: Confusion, Dizziness, Headache, Seizure, Syncope, Trouble Speaking, Difficulty Walking Psychiatric: Denies: Agitation, Anxiety, Confusion ED EXAM, GENERAL - Physical Exam Exam: See Below Exam Limited By: No Limitations General Appearance: Alert, WD/WN, No Apparent Distress Eye Exam: Bilateral Eye: EOMI, Normal Inspection, PERRL Ears: Normal External Exam, Normal Canal, Hearing Grossly Normal, Normal TMs Nose: Normal Inspection, No Blood Throat/Mouth: Normal Inspection, Normal Lips, Normal Oropharynx (no swelling, assymetry or evidence of abscess), Normal Voice, No Airway Compromise Head: Atraumatic, Normocephalic Neck: Lymphadenopathy (R), Other (There is a mild general swelling from the right anterior cervical nodes posteriorly to the sternocleidomastoid, extending down along the muscle sheath but ending about 5 cm above the insertion. The swollen region is quite tender to palpation but no cellulitis or abscess evident. Mastoid nontender.) Respiratory/Chest: No Respiratory Distress, Lungs Clear, Normal Breath Sounds Cardiovascular: Regular Rate, Rhythm, No Murmur Back Exam: Normal Inspection, Full Range of Motion Extremities: Normal Inspection, Normal Range of Motion Neurological: Alert, Oriented, Normal Cognition, No Motor/Sensory Deficits Psychiatric: Normal Affect, Normal Mood Skin Exam: Warm, Dry, Intact, Normal Color, No Rash Course - Vital Signs Last Recorded V/S: Last Vital Signs Temp 97.5 F 05/24/21 20:53 Pulse 61 05/24/21 21:06 Resp 16 05/24/21 21:06 BP 127/72 05/24/21 21:06 Pulse Ox 97 05/24/21 21:06 - Orders/Labs/Meds Orders: Active Orders 24 hr Category Date Time Status Peripheral IV Care [RC] . DIRECTED Care 05/24/21 20:43 Active CULTURE STREP A CONFIRMATION [] Stat Lab 05/24/21 20:51 Results STREP SCRN A RAPID W CULT CONF [] Stat Lab 05/24/21 20:51 Results Sodium Chloride 0.9% [Saline Flush] Med 05/24/21 20:43 Active 10 ml FLUSH Q8HR PRN Peripheral IV Insertion Adult [OM.PC] Routine Oth 05/24/21 20:43 Ordered Medication Orders Sodium Chloride (Sodium Chloride 0.9% 10 Ml Syringe) 10 ml FLUSH Q8HR PRN PRN Reason: keep vein open Labs: Laboratory Tests 05/24/21 05/24/21 Range/Units 20:51 20:51 WBC 8.55 (5.00-10.00) 10^3/uL RBC 5.17 (4.50-6.00) 10^6/uL Hgb 15.1 (13.0-17.0) g/dL Hct 42.8 (40.0-52.0) % MCV 82.8 (82.0-92.0) fL MCH 29.2 (27.0-31.0) pg MCHC 35.3 (32.0-36.0) g/dL RDW 11.5 (11.5-14.5) % Plt Count 181 (150-400) 10^3/uL MPV 8.7 (7.4-10.4) fL Immature Gran % (Auto) 0.2 (0.0-5.0) % Neut % (Auto) 57.1 (50.0-70.0) % Lymph % (Auto) 23.3 (20.0-40.0) % [place] % (Auto) 11.2 H (2.0-8.0) % Eos % (Auto) 7.7 H (1.0-3.0) % Baso % (Auto) 0.5 (0.0-1.0) % Neut # (Auto) 4.88 (2.50-7.00) 10^3/uL Lymph # (Auto) 1.99 (1.00-4.00) 10^3/uL [place] # (Auto) 0.96 H (0.10-0.80) 10^3/uL Eos # (Auto) 0.66 H (0.10-0.30) 10^3/uL Baso # (Auto) 0.04 (0.00-0.10) 10^3/uL Immature Gran # (Auto) 0.02 (0.00-0.50) 10^3/uL Sodium 144 (136-145) mmol/L Potassium 3.6 (3.5-5.1) mmol/L Chloride 105 (98-107) mmol/L Carbon Dioxide 28.2 (21.0-32.0) mmol/L Anion Gap 14.4 (5-15) mmol/L BUN 9 (7-18) mg/dL Creatinine 0.91 (0.51-1.17) mg/dL Est Cr Clr Drug Dosing 139.26 mL/min Estimated GFR (MDRD) > 60 mL/min Glucose 91 (70-140) mg/dL Calcium 8.8 (8.7-10.3) mg/dL C-Reactive Protein 0.4 (0.0-0.9) mg/dL Meds: Medications Generic Name Dose Route Start Last Admin Trade Name Freq PRN Reason Stop Dose Admin Sodium Chloride 10 ml 05/24/21 20:43 Sodium Chloride 0.9% 10 Ml Syringe FLUSH Q8HR PRN keep vein open Discontinued Medications Generic Name Dose Route Start Last Admin Trade Name Freq PRN Reason Stop Dose Admin Doxycycline Hyclate 400 mg 10/09/21 21:26 05/24/21 21:31 Doxycycline 50 Mg Cap PO 05/24/21 21:27 400 mg ONETIME ONE Administration - Re-Assessments/Exams Free Text/Narrative Re-Assessment/Exam: 05/24/21 21:45 Discussed findings and treatment plan with patient. I'm not 100% sure what this is but feel it is most likely a soft tissue infection involving the sternocleidomastoid muscle sheath and likely cervical lymph nodes. With the rapid onset, initiation of antibacterial coverage is important. If it turns out to not be infectious he will likely need to see a specialist. He is allergic to several classes of antibiotics but I feel doxycycline will provide good coverage especially if a possible MRSA. I directed him to follow up on Wednesday with his PCP or recheck sooner in ER if worsening significantly before then. Rx for Doxycycline 100 mg #20, 1 po q12h x 10 days. First dose given in ER. Discharged to home in stable condition. Departure - Departure Time of Disposition: 21:34 Disposition: Home, Self-Care 01 Condition: Good Clinical Impression: Suspected soft tissue infection, Throat pain in adult - Discharge Information Referrals: Magnolia Alcaraz, [employer] [Primary Care Provider] - Forms: ED Department Discharge Additional Instructions: Drink 8 cups of water daily. Take the antibiotic as directed. You can use Ibuprofen 600 mg three times a day for pain and inflammation. Follow up on Wednesday with your PCP for recheck. If significantly worsening before Wednesday return to ER for recheck. Sepsis Event Note (ED) - Evaluation Sepsis Screening Result: No Definite Risk - Focused Exam Vital Signs: Vital Signs Temp Pulse Resp BP Pulse Ox 05/24/21 21:06 61 16 127/72 97 05/24/21 20:53 97.5 F 59 L 16 125/81 97 - My Orders Last 24 Hours: My Active Orders 05/24/21 20:43 Peripheral IV Care [RC] . DIRECTED Sodium Chloride 0.9% [Saline Flush] 10 ml FLUSH Q8HR PRN Peripheral IV Insertion Adult [OM.PC] Routine 05/24/21 20:51 CULTURE STREP A CONFIRMATION [RM] Stat STREP SCRN A RAPID W CULT CONF [RM] Stat - Assessment/Plan Last 24 Hours: My Active Orders 05/24/21 20:43 Peripheral IV Care [RC] . DIRECTED Sodium Chloride 0.9% [Saline Flush] 10 ml FLUSH Q8HR PRN Peripheral IV Insertion Adult [OM.PC] Routine 05/24/21 20:51 CULTURE STREP A CONFIRMATION [RM] Stat STREP SCRN A RAPID W CULT CONF [RM] Stat
== END 2021-05-24 21:45 | disposition home or self-care (01) ==
LOC: KA.ED 20:34
DX: R07.0 Pain in throat (principal); Z91.048 Other nonmedicinal substance allergy status; Z88.1 Allergy status to other antibiotic agents; Z88.8 Allergy status to other drugs, medicaments and biological substances; Z88.0 Allergy status to penicillin; Z88.2 Allergy status to sulfonamides
CPT/HCPCS: 36415; 80048; 85025; 86140; 87081; 87430; 99284; A9270

== ENCOUNTER 2024-07-24 17:19 | Emergency (ER) | payer BC ==
[2024-07-24] MEDS ORDERED: Sodium Chloride 0.9% 10 ML Syringe FLUSH PRN (17:35)
[2024-07-24 17:43] LABS: BASOPHILS ABSOLUTE AUTO 0.04 10^3/uL (0.00-0.10); BASOPHILS PERCENT AUTO 0.5 % (0.0-1.0); EOSINOPHILS ABSOLUTE AUTO 0.61 10^3/uL (0.10-0.30); EOSINOPHILS PERCENT AUTO 7.6 % (1.0-3.0); HEMATOCRIT 46.9 % (40.0-52.0); HEMOGLOBIN 16.4 g/dL (13.0-17.0); IMMATURE GRAN ABSOLUTE AUTO 0.02 10^3/uL (0.00-0.50); IMMATURE GRAN PERCENT AUTO 0.2 % (0.0-5.0); LYMPHOCYTES ABSOLUTE AUTO 1.84 10^3/uL (1.00-4.00); LYMPHOCYTES PERCENT AUTO 22.8 % (20.0-40.0); MEAN CORPUSCULAR HEMOGLOBIN 29.7 pg (27.0-31.0); MEAN PLATELET VOLUME 8.9 fL (7.4-10.4); MONOCYTES ABSOLUTE AUTO 0.74 10^3/uL (0.10-0.80); MONOCYTES PERCENT AUTO 9.2 % (2.0-8.0); NEUTROPHILS ABSOLUTE AUTO 4.82 10^3/uL (2.50-7.00); NEUTROPHILS PERCENT AUTO 59.7 % (50.0-70.0); PLATELET COUNT,PLT 180 10^3/uL (150-400); RED BLOOD CELL COUNT 5.52 10^6/uL (4.50-6.00); RED CELL DISTRIBUTION WIDTH 12.6 % (11.5-14.5); WHITE BLOOD CELL COUNT,WBC 8.07 10^3/uL (5.00-10.00)
[2024-07-24 17:59] LABS: ANION GAP 10.7 mmol/L (5-15); BLOOD UREA NITROGEN,BUN 13 mg/dL (7-18); CALCIUM 8.6 mg/dL (8.7-10.3); CHLORIDE,CL 101 mmol/L (98-107); CREATININE 1.01 mg/dL (0.51-1.17); GLUCOSE RANDOM 91 mg/dL (70-140); POTASSIUM,K 3.7 mmol/L (3.5-5.1); SODIUM,NA 138 mmol/L (136-145)
[2024-07-24 18:01] LABS: ESTIMATED GFR 101 mL/min (>=60)
[2024-07-24] MEDS: Sodium Chloride 0.9% 50 ML IV SCH (18:08)
[2024-07-24] MEDS: Iopamidol 755 Mg/ML 100 ML Bottle IV ONE (18:08)
[2024-07-24] MEDS: Doxycycline Monohydrate 100 MG Cap PO ONE (18:38)
[2024-07-24 18:47] VITALS: BP 124/70; PULSE 60
== END 2024-07-24 18:45 | disposition home or self-care (01) ==
LOC: KA.ED 17:19
DX: H01.004 Unspecified blepharitis left upper eyelid (principal); Z88.0 Allergy status to penicillin; Z88.2 Allergy status to sulfonamides; Z88.1 Allergy status to other antibiotic agents; Z88.8 Allergy status to other drugs, medicaments and biological substances; Z91.048 Other nonmedicinal substance allergy status
CPT/HCPCS: 36415; 70481; 80048; 85025; 99284; A9270-GY; J3490; Q9967